=== PATIENT | female | born 1965 | race Caucasian/White ===

== ENCOUNTER 2019-05-07 21:48 | Inpatient (IN) | payer SELFPAY ==
[2019-05-07] MEDS ORDERED: IPRATROPIUM/ALBUTEROL SULFATE 3 ML AMPUL.NEB NEB ONE ×5 (21:54→22:16)
[2019-05-07] MEDS ORDERED: methylPREDNISolone SOD SUCC 125 MG/2 ML VIAL IVP ONE (22:03)
[2019-05-07] MEDS ORDERED: ONDANSETRON HCL/PF 4 MG/ 2ML VIAL IVP ONE (22:14)
[2019-05-07] MEDS ORDERED: diphenhydrAMINE HCL 50 MG/ML VIAL IVP ONE (22:15)
[2019-05-07 22:36] LABS: BASOPHILS % 0.7 % (0.0-1.5); NEUTROPHILS # 5.3 # k/uL (1.4-7.7)
[2019-05-07 22:45] LABS: eGFR (Non-African) > 60
--- NOTE | 2019-05-07 22:47 | ED Physician Documentation ---
Dyspnea - HISTORIAN Historian: patient - HPI Stated Complaint: shortness of breath Chief Complaint: Wheezing Additional Information: Patient presents to ED via EMS in respiratory distress. Patient arrived with oral airway and was being bagged. EMS reports patient was in tripod position and cyanotic when they arrived. Patient has a history of asthma and COPD. She stopped smoking 2 months ago. reports she has a 2-3 day history of increasing shortness of breath and wheezing. Tonight her symptoms worsened and she made the comment she needed an epipen. reports she is not on home oxygen and was using outdate Albuterol nebulizer treatments over the past several days with no improvement. Onset: days ago (2-3) Duration: continues in ED Initiating Event: out of meds Severity: severe Exacerbated By: exertion Associated Symptoms: anxiety Further Comments: no - ROS CONST: no problems EYES/ENT: none GI/: denies: vomiting NEURO/PSYCH: headache MS/SKIN/LYMPH: none - PAST HX Lung Disease: asthma, COPD Cardiac Disease: none PE Risk Factors: hypertension Surgeries/Procedures: denies: prior intubation Other History: none Allergies/Adverse Reactions: Allergies Allergy/AdvReac Type Severity Reaction Status Date / Time No Known Allergies Allergy Verified 08/17/14 12:19 Home Medications: Ambulatory Orders Medication Instructions Recorded Budesonide [Pulmicort] 0.5 mg IH BID #20 ml 08/17/14 Ipratropium/Albuterol Sulfate 3 ml IH Q4 #60 ampul.neb 08/17/14 [Duoneb] cloNIDine HCL [Catapress] 0.1 mg PO DAILY #10 tablet 08/17/14 predniSONE [Deltasone] 20 mg PO QDAY #20 tablet 08/17/14 - SOCIAL HX Smoking History: non-smoker, quit less than 1 year Alcohol Use: none Drug Use: none - FAMILY HX Family History: none - VITAL SIGNS Vital Signs: Vital Signs Temp Pulse Resp BP Pulse Ox 158/105 08/17/14 14:00 - REVIEWED ASSESSMENTS Nursing Assessment Reviewed: Yes Vitals Reviewed: Yes Progress - Progress Progress: 2200 ABG drawn pH 7.19, pCO2 68, pO2 155 BE -3.9 HCO 21.9 on 100% FiO2 2214 Patient removed oral airway herself 2219 Patient is talking, answering questions with 2-3 words. Oriented x 3 2225 Patient placed on Bipap 10/5 FiO2 100% 2245 Reduced FiO2 to 80% 2300 Reduced FiO2 to 50% 2315 Reduced FiO2 to 40% 2320 ABG drawn pH 7.36, pCO2 48, pO2 190, FiO2 40% 2330 Patient transferred off Bipap to nasal cannula 4 liters - EKG/XRAY/CT Comments: 2205 Sinus Tachycardia [address] changes ED Results Lab/Radiology - Lab Results Lab Results: Lab Results 05/07/19 10:30 WBC 11.10 K/ul K/ul (4.00-12.00) RBC 4.84 M/ul M/ul (3.90-5.20) Hgb 14.4 g/dL g/dL (11.5-16.0) Hct 43.2 % % (34.5-46.5) MCV 89.0 fl fl (80.0-100.0) MCH 29.8 pg pg (28.0-34.0) MCHC 33.4 g/dL g/dL (30.0-36.0) RDW 11.7 % % (11.3-14.3) Plt Count 275 K/mm3 K/mm3 (130-400) Neut % (Auto) 48.1 % % (39.0-79.0) Lymph % (Auto) 32.2 % % (16.0-50.0) [place] % (Auto) 7.0 % % (0.0-11.0) Eos % (Auto) 12.0 % H % (0.0-6.8) Baso % (Auto) 0.7 % % (0.0-1.5) Neut # (Auto) 5.3 # k/uL # k/uL (1.4-7.7) Lymph # (Auto) 3.6 # k/uL # k/uL (0.6-4.0) [place] # (Auto) 0.8 # k/uL # k/uL (0.0-0.9) Eos # (Auto) 1.3 # k/uL H # k/uL (0.0-0.6) Baso # (Auto) 0.1 # k/uL # k/uL (0.0-0.5) - Radiology Radiology Impressions: Report Submission Date: May 07, 2019 11:06:14 PM CDT Patient Study Name: JOSE PA Date: May 07, 2019 10:40:36 PM CDT Modality Type: DX Gender: F Description: CHEST 1VIEW : 63 Institution: [facility] Physician: TRACEY HUTTON Portable chest Clinical history: Respiratory arrest. Findings: Examination of the chest in single portable AP view demonstrates the lungs to be clear. Cardiovascular and mediastinal silhouettes within normal limits. Aorta is atherosclerotic. Monitor leads superimpose the chest. Impression: 1. Aortic atherosclerosis. 2. No active disease. Electronically signed on May 07, 2019 11:06:14 PM CDT by: Mahendra Andrews - Orders Orders: ED Orders Category Date Time Status Arterial Blood Gas 1T Care 05/07/19 22:01 Active CHEST 1VIEW [RAD] Stat Exams 05/07/19 Ordered CBC/PLATELET/DIFF Routine Lab 05/07/19 10:30 Completed CMP Routine Lab 05/07/19 10:30 Received NTBNP Stat Lab 05/07/19 10:30 Received TROPONIN I Stat Lab 05/07/19 10:30 Received Ipratropium/Albuterol Sulfate [Duoneb] Med 05/07/19 22:12 Discontinued 15 ml NEB .STK-MED ONE Ipratropium/Albuterol Sulfate [Duoneb] Med 05/07/19 21:54 Discontinued 3 ml NEB .STK-MED ONE Ipratropium/Albuterol Sulfate [Duoneb] Med 05/07/19 22:15 Discontinued 3 ml NEB NOW ONE Ipratropium/Albuterol Sulfate [Duoneb] Med 05/07/19 22:15 Discontinued 3 ml NEB NOW ONE Ipratropium/Albuterol Sulfate [Duoneb] Med 05/07/19 22:16 Discontinued 3 ml NEB NOW ONE Ondansetron HCl/Pf [Zofran] Med 05/07/19 22:14 Discontinued 4 mg IVP NOW ONE diphenhydrAMINE HCL [Benadryl] Med 05/07/19 22:15 Discontinued 25 mg IVP NOW ONE methylPREDNISolone SOD SUCC [SOLU-Medrol] Med 05/07/19 22:03 Discontinued 125 mg IVP NOW ONE EKG WITH COMPARISON Stat Ther 05/07/19 Ordered Dyspnea Physical Exam - EXAM General Appearance: moderate distress EENT: other (oral airway/bagging in process) Neck: nml inspection Respiratory: respiratory failure, accessory muscle use, decreased air movement, wheezes (diffuse wheezing bilaterally) CVS: reg. rate & rhythm, no murmur Abdomen: non-tender, no distention Skin: color nml Extremities: non-tender, no edema Neuro/Psych: other (opens eye to questions, answers yes/no) Discharge Clincal Impression: Acute respiratory failure with hypoxia and hypercapnia Acute asthma exacerbation Qualifiers: Asthma severity: severe Asthma persistence: persistent Qualified Code(s): J45.51 - Severe persistent asthma with (acute) exacerbation Referrals: Primary Doctor,No [Primary Care Provider] - 2 Days Additional Instructions: Admit acute to Dr. Devlin Condition: Stable Disposition: 09 ADMITTED INPATIENT Decision to Admit: [id number] Date of Decison to Admit: 05/07/19 Decision Time: 23:56
--- NOTE | 2019-05-07 23:08 | Diagnostic Imaging Report ---
TRACEY HUTTON [facility] [address] [facility] [address] [place], [place]. [address] Report Submission Date: May 07, 2019 11:06:14 PM CDT Patient Study Name: JOSE PA Date: May 07, 2019 10:40:36 PM CDT Modality Type: DX Gender: F Description: CHEST 1VIEW : 63 Institution: [facility] Physician: TRACEY HUTTON Portable chest Clinical history: Respiratory arrest. Findings: Examination of the chest in single portable AP view demonstrates the lungs to be clear. Cardiovascular and mediastinal silhouettes within normal limits. Aorta is atherosclerotic. Monitor leads superimpose the chest. Impression: 1. Aortic atherosclerosis. 2. No active disease. Electronically signed on May 07, 2019 11:06:14 PM CDT by: Mahendra CASILLAS
[2019-05-08] MEDS: MONTELUKAST SODIUM 10 MG TABLET PO SCH ×2 (02:01→20:46)
[2019-05-08 02:15] VITALS: BMI 34.4
[2019-05-08] MEDS: methylPREDNISolone SOD SUCC 40 MG/ML VIAL IVP SCH ×3 (05:38→20:46)
[2019-05-08] MEDS: diphenhydrAMINE HCL 50 MG/ML VIAL IVP SCH ×3 (05:43→17:46)
--- NOTE | 2019-05-08 06:59 | History and Physical Report ---
History of Present Illnes - History of Present Illness Reason for Visit: dyspnea History of Present Illness: Patient presents to ED via EMS in respiratory distress. Patient arrived with oral airway and was being bagged. EMS reports patient was in tripod position and cyanotic when they arrived. Patient has a history of asthma . She stopped smoking 2 months ago. reports she has a 2-3 day history of increasing shortness of breath and wheezing. Tonight her symptoms worsened and she made the comment she needed an epipen. reports she is not on home oxygen and was using outdate Albuterol nebulizer treatments over the past several days with no improvement. 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 denies: Pneumococcal Vaccine Influenza Vaccine: No Pneumonia Vaccine: No Resuscitation Status: Resusciation Status Resuscitation Status Full Code Review of Systems - Review of Systems Constitutional: negative: Fever, Chills, Weakness Eyes: negative: pain, vision change ENT: Nose Discharge (mild clear), Nose Congestion. negative: Ear Pain, Ear Discharge, Nose Pain, Mouth Pain, Throat Swelling Respiratory: Cough, Dry, Shortness of Breath, SOB with Excertion. negative: Hemoptysis, Pleuritic Pain Cardiovascular: negative: Chest Pain, Palpitations, Orthopnea, Edema Gastrointestinal: negative: Nausea, Vomiting, Abdominal Pain, Diarrhea, Constipation, Melena, Hematochezia Genitourinary: negative: Dysuria, Frequency Musculoskeletal: negative: Neck Pain, Shoulder Pain, Arm Pain, Back Pain Skin: negative: Rash Neurological: negative: Weakness, Numbness, Confusion, Seizures - Medications/Allergies Allergies/Adverse Reactions: Allergies Allergy/AdvReac Type Severity Reaction Status Date / Time No Known Allergies Allergy Verified 08/17/14 12:19 Current Inpatient Medications: Current Inpatient Medications Albuterol/Ipratropium (Duoneb) 3 ml NEB QID JESSICA Stop: 06/07/19 08:59 Diphenhydramine HCl (Benadryl) 25 mg IVP Q6 JESSICA Stop: 06/07/19 05:59 Last Admin: 05/08/19 05:43 Dose: 25 mg Enoxaparin Sodium (Lovenox) 30 mg SQ DAILY [facility] Stop: 05/22/19 08:59 Methylprednisolone Sodium Succinate (Solu-Medrol) 60 mg IVP Q8 [facility] Stop: 06/07/19 04:59 Last Admin: 05/08/19 05:38 Dose: 60 mg Miscellaneous (Chem Sticks) 1 each CHEMQID [facility]; Protocol Stop: 06/07/19 07:29 Last Admin: 05/08/19 05:46 Dose: 1 each Montelukast Sodium (Singulair) 10 mg PO HS [facility] Stop: 06/07/19 01:59 Last Admin: 05/08/19 02:01 Dose: 10 mg Exam - Exam Vital Signs: Vital Signs (72 hours) 05/07/19 05/07/19 05/07/19 21:51 22:15 22:24 Temperature 97.8 F 97.8 F Pulse Rate [ 119 H 118 H Pulse ox] Respiratory 145 H 18 18 Rate Blood Pressure 141/105 143/110 [Right Arm] O2 Sat by Pulse 99 100 Oximetry 05/07/19 05/07/19 05/07/19 22:34 22:40 22:41 Temperature Pulse Rate [ 125 H 112 H 112 H Pulse ox] Respiratory 12 16 16 Rate Blood Pressure 155/103 140/97 140/97 [Right Arm] O2 Sat by Pulse 100 100 100 Oximetry 05/07/19 05/07/19 05/07/19 22:50 23:05 23:20 Temperature Pulse Rate [ 113 H 110 H 108 H Pulse ox] Respiratory 15 13 15 Rate Blood Pressure 137/109 146/86 149/88 [Right Arm] O2 Sat by Pulse 100 100 100 Oximetry 05/07/19 05/07/19 05/08/19 23:35 23:50 00:05 Temperature Pulse Rate [ 109 H 106 H 108 H Pulse ox] Respiratory 14 20 13 Rate Blood Pressure 146/91 138/88 155/87 [Right Arm] O2 Sat by Pulse 98 95 96 Oximetry 05/08/19 05/08/19 05/08/19 00:35 00:50 01:14 Temperature 97.4 F L Pulse Rate [ 103 H 102 H 114 H Pulse ox] Respiratory 16 19 20 Rate Blood Pressure 142/88 121/88 158/94 [Right Arm] O2 Sat by Pulse 96 95 100 Oximetry 05/08/19 05/08/19 02:00 06:00 Temperature 97.4 F L 97.7 F Pulse Rate [ 114 H 97 H Pulse ox] Respiratory 20 20 Rate Blood Pressure 158/94 148/84 [Right Arm] O2 Sat by Pulse 100 100 Oximetry General: Alert, Oriented to Person, Oriented to Place, Oriented to Time, Cooperative, No acute distress HEENT: Atraumatic, PERRLA, EOMI, Mouth Mucous membr. moist/[place], Nose Mucous membr. moist/[place] Neck: Normal Range of Motion Carotids: WNL Thyroid: WNL Lungs: Normal air movement, Speaks full Sentences, Wheezes (mild bilateral). No: Rales, Rhonchi, Stridor, Decreased Air Movement Cardiovascular: Regular rate, Normal S1, Normal S2, No murmurs Abdomen: Normal bowel sounds, Soft, No tenderness, No hepatospenomegaly, No masses Integumentary: Normal, [place], Warm, Dry Extremities: No clubbing, No cyanosis, No edema, Normal pulses, No tenderness/swelling Neurological: Normal gait, Normal speech, Strength Equal Bilat, Normal tone, Sensation intact, Cranial nerves 3-12 NL, Reflexes 2+ Psych/Mental Status: Mental status NL, Mood NL, Appropriate Affect, Intact Judgment - Laboratory Results Laboratory Results: Laboratory Results 05/07/19 05/07/19 05/07/19 10:30 10:30 10:30 WBC 11.10 RBC 4.84 Hgb 14.4 Hct 43.2 MCV 89.0 MCH 29.8 MCHC 33.4 RDW 11.7 Plt Count 275 Neut % (Auto) 48.1 Lymph % (Auto) 32.2 [place] % (Auto) 7.0 Eos % (Auto) 12.0 H Baso % (Auto) 0.7 Neut # (Auto) 5.3 Lymph # (Auto) 3.6 [place] # (Auto) 0.8 Eos # (Auto) 1.3 H Baso # (Auto) 0.1 Sodium 141 Potassium 4.1 Chloride 102 Carbon Dioxide 25 Anion Gap 18.1 BUN 18 H Creatinine 0.81 Est GFR ( Amer) > 60 Est GFR (Non-Af Amer) > 60 Glucose 234 H Calcium 9.2 Total Bilirubin 0.4 AST 43 ALT 32 Alkaline Phosphatase 87 Troponin I < 0.012 L NT-Pro-B Natriuret Pep 192.8 H Total Protein 8.0 Albumin 4.6 Assessment/Plan - Assessment/Plan (1) Acute asthma exacerbation Status: Acute Current Visit: Yes Qualifiers: Asthma severity: severe Asthma persistence: persistent Qualified Code(s): J45.51 - Severe persistent asthma with (acute) exacerbation Assessment: continue with present therapy (2) Essential hypertension Status: Acute Current Visit: Yes VTE Assessment - RISK FACTOR SCORE VTE RISK FACTOR SCORES: AGE 40-60 YEARS - RISK VTE LOW RISK: SCORE OF 1 OR LESS (RISK PROXIMAL DVT 0.4%) NO PROPHYLAXIS NEEDED (ambulatory)
[2019-05-08] MEDS: IPRATROPIUM/ALBUTEROL SULFATE 3 ML AMPUL.NEB NEB SCH ×4 (08:45→21:03)
[2019-05-08] MEDS: cloNIDine HCL 0.1 MG TABLET PO SCH (09:09)
[2019-05-08] MEDS: LISINOPRIL 10 MG TABLET PO SCH (09:09)
[2019-05-08] MEDS: ENOXAPARIN SODIUM 30 MG/0.3 ML DISP.SYRIN SQ SCH (09:10)
[2019-05-09] MEDS: diphenhydrAMINE HCL 50 MG/ML VIAL IVP SCH ×2 (00:28→05:54)
[2019-05-09] MEDS: methylPREDNISolone SOD SUCC 40 MG/ML VIAL IVP SCH (05:02)
--- NOTE | 2019-05-09 07:33 | Discharge Summary ---
Discharge Summary - Discharge [facility] Admission Date: 05/07/19 (Acute) Discharge Date: 05/09/19 (Home) Discharge To: Home History of Present Illness: Patient presents to ED via EMS in respiratory distress. Patient arrived with oral airway and was being bagged. EMS reports patient was in tripod position and cyanotic when they arrived. Patient has a history of asthma . She stopped smoking 2 months ago. reports she has a 2-3 day history of increasing shortness of breath and wheezing. Tonight her symptoms worsened and she made the comment she needed an epipen. reports she is not on home oxygen and was using outdate Albuterol nebulizer treatments over the past several days with no improvement. Condition at Discharge: Stable Home Medications: Ambulatory Orders Medication Instructions Recorded cloNIDine HCL [Catapress] 0.1 mg PO DAILY #10 tablet 08/17/14 Albuterol Sulfate [Ventolin HFN] 2.5 mg NEB Q4 PRN #60 ampul.neb 05/09/19 Fluticasone/Vilanterol [Breo 1 each IH DAILY #1 aer.pow.ba 05/09/19 Ellipta 100-25 Mcg INH] Prednisone 5 mg PO DIRECTED #72 tab.ds.pk 05/09/19 Consultations this Visit: None Procedures this Visit: None Allergies/Adverse Reactions: Allergies Allergy/AdvReac Type Severity Reaction Status Date / Time No Known Allergies Allergy Verified 08/17/14 12:19 Patient Problems: Current Active Problems Problem Status Onset Acute asthma exacerbation Acute Acute respiratory failure with hypoxia and hypercapnia Acute Essential hypertension Acute - Final Diagnosis (1) Acute asthma exacerbation Problems: improved (2) Essential hypertension Problems: stable
[2019-05-09 08:54] VITALS: BP 134/81
[2019-05-09] MEDS: ENOXAPARIN SODIUM 30 MG/0.3 ML DISP.SYRIN SQ SCH (08:54)
[2019-05-09] MEDS: cloNIDine HCL 0.1 MG TABLET PO SCH (08:54)
[2019-05-09] MEDS: LISINOPRIL 10 MG TABLET PO SCH (08:54)
[2019-05-09] MEDS: IPRATROPIUM/ALBUTEROL SULFATE 3 ML AMPUL.NEB NEB SCH (09:00)
== END 2019-05-09 10:25 | disposition home or self-care (01) | DRG 189 ==
LOC: ED 21:48 → SOUTH 05-08 01:10
PROVIDERS: ADMIT Family Medicine; ATTEND Family Medicine
DX: J96.01 Acute respiratory failure with hypoxia (principal); J45.51 Severe persistent asthma with (acute) exacerbation; J96.02 Acute respiratory failure with hypercapnia; I10 Essential (primary) hypertension; J44.9 Chronic obstructive pulmonary disease, unspecified; Z87.891 Personal history of nicotine dependence; Z79.51 Long term (current) use of inhaled steroids; Z79.52 Long term (current) use of systemic steroids; Z79.899 Other long term (current) drug therapy
CPT/HCPCS: 36600; 71045; 80053; 82803; 83880; 84484; 85025; 94640; 94760; 96374; 99284; J1200; J1650; J2405; J2920; J2930; J1030; S1016